=== PATIENT | female | born 1980 | race Caucasian/White ===

== ENCOUNTER 2024-09-17 10:25 | Day surgery (SDC) | payer MEDICAID, SELFPAY ==
[2024-09-16 12:59] VITALS: BMI 41.1
[2024-09-17 10:48] VITALS: BP 120/66; PULSE 54; RESP 20; TEMP 36.3; O2SAT 95; BMI 41.6
[2024-09-17] MEDS: RINGERS LACTATED 500 ML 500 ML 20 ML IV (11:31)
[2024-09-17 12:25] VITALS: BP 127/75; PULSE 59; RESP 19; TEMP 36.6; O2SAT 96
--- NOTE | 2024-09-17 12:25 | SUR.PHASEII ---
1225: Pt. AAOx4, vitals stable, breathing unlabored, no complaint of pain or nausea, no dressing in place, no active bleed noted, report received from Betty MARIANO and Dimitris MEDINA.
[2024-09-17 12:30] VITALS: BP 131/79; PULSE 54; RESP 21; TEMP 36.7; O2SAT 97
[2024-09-17 12:35] VITALS: BP 137/78; PULSE 54; RESP 21; O2SAT 97
--- NOTE | 2024-09-17 12:35 | SUR.PHASEII ---
Received report on pt. s/p procedure from Bhumika MARIANO. Pt. is tolerating ice chips, VSS, no c/o pain or nausea at this time.
--- NOTE | 2024-09-17 13:10 | SUR.PHASEII ---
1310: Pt. AAOx4, breathing unlabored, no complaint of pain or nausea, no dressing in place, no active bleed, report received from Brenda RN, pt. disconnected from vitals machine and dressed ready for DC.
--- NOTE | 2024-09-17 13:15 | SUR.PHASEII ---
1315: Gave discharge instructions to the pt. and her ride, both verbalized understanding and had no further questions. Pt. left with all personal belongings. No complications.
== END 2024-09-17 13:15 | disposition home or self-care (01) ==
PROVIDERS: Referring Provider Internal Medicine Gastroenterology; Visit Provider Internal Medicine Gastroenterology
PROC: (CPT 43239; principal; 2024-09-17 11:30)
DX: K22.2 Esophageal obstruction (principal); K28.9 Gastrojejunal ulcer, unspecified as acute or chronic, without hemorrhage or perforation; I10 Essential (primary) hypertension; K22.11 Ulcer of esophagus with bleeding; K31.A0 Gastric intestinal metaplasia, unspecified; K31.89 Other diseases of stomach and duodenum; K20.91 Esophagitis, unspecified with bleeding
CPT/HCPCS: 43239; 43249; A4649; C1726; J7120